=== PATIENT | female | born 1955 | race Caucasian/White ===

== ENCOUNTER 2016-11-06 12:54 | Inpatient (IN) | payer BC ==
[~2016-11-06] VITALS: Ht 170.2 cm; Wt 72.7 kg
[2016-11-06 13:39] LABS: BASOPHILS 0.6 % (0-2); EOSINOPHILS 4.4 % (0-7); HEMATOCRIT 41.4 % (36.0-48.0); HEMOGLOBIN 14.1 g/dL (12-16); LYMPHOCYTES 38.5 % (15-50); MCH 28.7 pg (26.0-34.0); MCHC 34.1 g/dL (31.0-37.0); MCV 84.1 fL (80.0-100.0); MEAN PLATELET VOLUME 9.7 fL (7.4-10.4); MONOCYTES 7.1 % (2-11); NEUTROPHILS 49.4 % (40-80); PLATELET COUNT 263 10x3/uL (130-400); RBC 4.92 10x6/uL (4.00-5.40); RDW 12.8 % (11.5-14.5); WBC 5.2 10x3/uL (4.8-10.8)
[2016-11-06 13:43] LABS: APPEARANCE CLEAR (CLEAR); BILIRUBIN NEGATIVE (NEGATIVE); COLOR YELLOW (YELLOW); GLUCOSE NEGATIVE (NEGATIVE); KETONE NEGATIVE (NEGATIVE); LEUKOCYTE ESTERASE NEGATIVE (NEGATIVE); NITRITE NEGATIVE (NEGATIVE); PROTEIN NEGATIVE (NEGATIVE); SPECIFIC GRAVITY 1.005 (1.005-1.020); UROBILINOGEN NORMAL (NORMAL)
[2016-11-06 13:52] LABS: ALBUMIN 3.7 g/dL (3.4-5.0); ALKALINE PHOSPHATASE 57 U/L (46-116); ALT (SGPT) 19 U/L (10-68); BILIRUBIN - TOTAL 0.44 mg/dL (0.2-1.3); CALC OSMOLALITY 269 mosm/kg (275-300); CARBON DIOXIDE 30.3 mmol/L (21.0-32.0); CHLORIDE - SERUM 100 mmol/L (98-107); CREATININE - SERUM 0.7 mg/dL (0.6-1.3); GLUCOSE 101 mg/dL (74-106); PROTEIN - SERUM 7.5 g/dL (6.4-8.2); SODIUM 136 mmol/L (136-145); UREA NITROGEN 8 mg/dL (7-18); eGFR NON AFRICAN AMERICAN 90 mL/min (90-120)
[2016-11-06 20:00] VITALS: BP 125/80
[2016-11-06] MEDS ORDERED: SYNTHROID125 MCG PO (20:37)
[2016-11-06] MEDS ORDERED: DEPAKOTE ER250 MG PO (20:38)
[2016-11-06] MEDS ORDERED: CELEXA20 MG PO (20:39)
--- NOTE | 2016-11-06 23:29 | NUR ---
OUT OF ROOM, IN MRI
[2016-11-07] VITALS (8 sets, daily range): BP systolic 102–159; BP diastolic 69–86; Ht 170.2 cm; Wt 72.7 kg
--- NOTE | 2016-11-07 07:40 | NUR ---
PATIENT IS RESTING IN HER BED. AT THE BEDSIDE. PATIENT IS AWAKE, ALERT, AND ORIENTED X4 THIS MORNING. PATIENT DENIES ANY NEEDS AT PRESENT TIME. CALL LIGHT IN PATIENT'S REACH. WILL MONITOR PATIENT.
--- NOTE | 2016-11-07 09:48 | NUR ---
PATIENT SITTING UP ON THE SIDE OF HER BED. AT PATIENT'S BEDSIDE. SCHEDULED ASPIRIN GIVEN TO PATIENT. PATIENT DENIES ANY NEEDS AT PRESENT TIME. CALL LIGHT IN PATIENT'S REACH. WILL MONITOR.
--- NOTE | 2016-11-07 21:30 | NUR ---
PATIENT OUT OF SHOWER. UP AMBULATING IN THE [place]
--- NOTE | 2016-11-07 22:00 | NUR ---
PATIENT AMBULATING IN THE [place]. GAIT STRONG AND STEADY. NO SIGNS OF DISTRESS NOTED.
--- NOTE | 2016-11-07 22:42 | NUR ---
PATIENT IS EATING CRACKERS AND PEANUT BUTTER. SAID SHE IS ABOUT TO GO TO SLEEP.
[2016-11-08 04:02] VITALS: BP 143/68
--- NOTE | 2016-11-08 05:25 | NUR ---
PATIENT IS RESTING QUIETLY WITH EYES CLOSED. NO SIGNS OF DISTRESS NOTED.
[2016-11-08] MEDS ORDERED: ASPIRIN325 MG PO (07:07)
--- NOTE | 2016-11-08 07:30 | NUR ---
ASSESSMENT COMPLETE. SL TO L AC. DENIES ANY NEEDS AT THIS TIME.
[2016-11-08 08:32] VITALS: BP 141/79
--- NOTE | 2016-11-08 09:45 | NUR ---
CARDIOLOGY TECH REMOVED AND SENT BACK TO MONITOR STATION. SL REMOVED. CATHETER TIP INTACT. DISCHARGE TEACHING GIVEN TO PATIENT. SCRIPT FOR ASPIRIN GIVEN TO PATIENT. PATIENT AND FAMILY VOICED UNDERSTANDING OF INSTRUCTIONS.
--- NOTE | 2016-11-08 09:50 | NUR ---
DC'D HOME WITH . AMBULATED TO VEHICLE WITH STAFF AND FAMILY AND BELONGINGS.
--- NOTE | 2016-11-09 18:00 | EEG ---
PATIENT:TOM JEAN BAPTISTE DATE OF SERVICE: 11/06/16 MEDICAL RECORD: [id number] DATE OF : 55 LOCATION:D.221 D.MS ADMISSION DATE: 11/06/16 REFERRING PHYSICIAN: INTERPRETING PHYSICIAN: RIP MARTEL MD DATE OF SERVICE: 11/07/2016 Referred as an inpatient by myself, currently in room 2110. ELECTROENCEPHALOGRAM NUMBER: [id number]. DATE OF EXAMINATION: 11/07/16 at 10:40 a.m. TECHNICAL DATA: This electroencephalographic recording consists of approximately 20 minutes of data collection utilizing the international 10/20 system of electrode placement and both referential and non-referential montages. Sixteen channels of electrocerebral recording are accompanied by a 17th channel dedicated to the electrocardiographic rhythm and 2 channels of electromyographic recording. Recording is performed in the awake and sleep states utilizing activation by hyperventilation and photic stimulation. ELECTROENCEPHALOGRAPHIC DATA: The awake state comprises approximately 50% of the recorded electrocerebral activity. Electromyographic artifact is prominent and rapid eye movements are seen. The posterior dominant background consists of a well-developed, symmetric, rhythmic, waxing and waning alpha activity of 8-9 Hz, which is suppressed by eye opening. The drowsy state comprises approximately 40% of the recorded electrocerebral activity. Electromyographic artifact is diminished and rapid eye movements are not seen. The transition to stage II sleep, which comprises the remaining portion of the recorded electrocerebral activity is heralded by the appearance of typical 14-15 Hz sleep spindles. No abnormal or focal slowing is identified. No epileptiform discharges are seen. Hyperventilation and photic stimulation induced no abnormal change in the recorded electrocerebral activity. INTERPRETATION: Normal (awake and asleep). This is a normal electroencephalographic recording. TRANSINT:[id number] Voice Confirmation ID: [id number] DOCUMENT ID: [id number] RIP MARTEL MD at 1800 CC: [id number] DICTATION DATE: 11/08/16601 TILE GRINDER: 11/08/161913 DIS IN 11/08/16 [facility] [address] [id number]
== END 2016-11-08 09:50 | disposition home or self-care (01) | DRG 72 ==
LOC: D.ER 12:54 → D.MS 18:56
PROVIDERS: Emergency Medicine; ADMIT Family Medicine
DX: G45.4 Transient global amnesia (principal); E03.9 Hypothyroidism, unspecified